=== PATIENT | male | born 1950 | race Caucasian/White ===

== ENCOUNTER → 2020-05-21 | Outpatient (CLI) | payer OTHER ==
--- NOTE | 2020-05-22 07:44 | EKG ---
[facility] [place] [address] ELECTROCARDIOGRAM REPORT Name: GEORGIA MAGAÑA Room #: [facility].#: [id number] Admission: 05/21/20 Attend Phys: Cam Mcclure MD Discharge: Date of : 54 Report #: [id number] THIS REPORT FOR: cc: [facility] - Clinic physician unknown [facility] - Clinic physician unknown Gil Geiger MD [facility] ~ THIS REPORT FOR: //name// [facility] Test Date: 2020-05-21 Test Time: 12:23:17 Pat Name: GEORGIA MAGAÑA Department: Room: Gender: 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
== END ==
LOC: CV 11:55
PROVIDERS: ATTEND Orthopaedic Surgery
DX: I48.91 Unspecified atrial fibrillation (principal); R00.2 Palpitations